=== PATIENT | male | born 1940 | race Caucasian/White ===

== ENCOUNTER → 2016-08-29 | Outpatient (REF) | payer BC, MEDICARE ==
[~2016-08-29] MED LIST: AMLO10TA2 PO; ATOR40TA75 PO; CHLO50TA PO; CIPR-249 PO; CITA20TA4 PO; ESOM1CAP5 PO; FINA5TAB2 PO; FLOM5CAP PO; FURO40TA2 PO; GEMF600T PO; GLIM4TAB PO; ISOS120T4 PO; LEVO500T3 PO; LISI-538 PO; LISI40TAB PO; LOVA1CAP17 PO; MAGN1TAB25 PO; METO-398 PO; METO100T5 PO; NEXI40CA PO; OMEG100011 PO; OMEP40CA2 PO; OXYB15TA PO; PEG1POW PO; POTA10CA PO; POTA1TAB14 PO; PROAAER10 INH; TRAD5TAB PO; XANA0.25 PO
[2016-08-29 16:18] LABS: ALBUMIN 3.2 GM/DL (3.2-5.2); ALBUMIN/GLOBULIN RATIO 0.84 (1.00-1.93); ALKALINE PHOSPHATASE 192 U/L (45-117); ALT/SGPT 59 U/L (12-78); ANION GAP 8 MEQ/L (8-16); AST/SGOT 25 U/L (15-37); BILIRUBIN,TOTAL 0.8 MG/DL (0.2-1.0); BLOOD UREA NITROGEN 13 MG/DL (7-18); CALCIUM LEVEL 8.7 MG/DL (8.8-10.2); CARBON DIOXIDE LEVEL 31 MEQ/L (21-32); CHLORIDE LEVEL 95 MEQ/L (98-107); CHOLESTEROL LEVEL 179 MG/DL (<200); GLOMERULAR FILTRATION RATE > 60.0 (>42); GLUCOSE, FASTING 130 MG/DL (83-110); MAGNESIUM LEVEL 1.9 MG/DL (1.8-2.4); POTASSIUM SERUM 4.7 MEQ/L (3.5-5.1); SODIUM LEVEL 134 MEQ/L (136-145); TRIGLYCERIDES LEVEL 296 MG/DL (<150)
== END ==
LOC: M SFHCLACO 08:41
PROVIDERS: ATTEND Physician Assistant
DX: E11.9 Type 2 diabetes mellitus without complications (principal); I10 Essential (primary) hypertension; E78.2 Mixed hyperlipidemia; E61.2 Magnesium deficiency; Z12.5 Encounter for screening for malignant neoplasm of prostate
CPT/HCPCS: 80053; 80061; 83036; 83735; G0103

== ENCOUNTER → 2016-12-13 | Outpatient (CLI) | payer MEDICARE, BC ==
--- NOTE | 2016-12-17 11:32 | SLEEPCENT ---
DATE OF PROCEDURE: 12/13/2016 REFERRING PHYSICIAN: Dr. Kyler Iyer. INTERPRETATION: Nocturnal polysomnography was performed for titration of pressure therapy in this patient with severe organic brain syndrome, apnea/hypopnea index 116. For testing, a ICU Metrix Simplus full face mask of small size was used, 3 liters of oxygen was bled through the system per order and the lights extinguished. 7 hours and 30 minutes of data were reviewed. There were 327 minutes of sleep identified. Sleep latency was short at 24 minutes. Rapid eye movement (REM) latency was short at 7 minutes. Sleep architecture improved with evidence of REM rebound. Overall sleep efficiency was 75.1%. The patient's EKG showed a sinus rhythm with PACs. Average heart rate 67 beats per minute. EEG shows reasonably normal waveforms for awake and sleep. Respiratory events persisted requiring an increase in CPAP despite optimal mask fit and minimal air leak. The patient was changed to a bilevel device. The best sleep was seen on an inspiratory pressure of 22 over an expiratory pressure of 18. This with 3 liters of oxygen bled through the system with some limb activity identified and with EMG leads, but arousal from limb events occurred 4.6 times per hour. IMPRESSION: Obstructive sleep apnea syndrome (G47.33). RECOMMENDATION: Nightly use of pressure therapy inspiratory pressure of 22 and a respiratory pressure of 18 with 3 liters of oxygen bleed through the system.
== END ==
LOC: M SLEEP 07:59
PROVIDERS: ATTEND Internal Medicine Pulmonary Disease
DX: G47.33 Obstructive sleep apnea (adult) (pediatric) (principal)

== ENCOUNTER → 2017-07-31 | Outpatient (REF) | payer BC, MEDICARE ==
[2017-07-31 15:08] LABS: ALBUMIN 3.1 GM/DL (3.2-5.2); ALBUMIN/GLOBULIN RATIO 0.74 (1.00-1.93); ALKALINE PHOSPHATASE 369 U/L (45-117); ALT/SGPT 76 U/L (12-78); ANION GAP 6 MEQ/L (8-16); AST/SGOT 49 U/L (7-37); BLOOD UREA NITROGEN 14 MG/DL (7-18); CALCIUM LEVEL 8.4 MG/DL (8.8-10.2); CARBON DIOXIDE LEVEL 36 MEQ/L (21-32); CHLORIDE LEVEL 96 MEQ/L (98-107); CHOLESTEROL LEVEL 178 MG/DL (<200); CHOLESTEROL RISK RATIO 6.846 (<5); CREATININE FOR GFR 1.19 MG/DL (0.70-1.30); GLOMERULAR FILTRATION RATE > 60.0 (>42); GLUCOSE, FASTING 144 MG/DL (70-100); HDL CHOLESTEROL 26 MG/DL (>40); LDL CHOLESTEROL 92.6 MG/DL (<100); MAGNESIUM LEVEL 2.1 MG/DL (1.8-2.4); NON-HDL-C 152 MG/DL; POTASSIUM SERUM 4.6 MEQ/L (3.5-5.1); SODIUM LEVEL 138 MEQ/L (136-145); TOTAL PROTEIN 7.3 GM/DL (6.4-8.2); TRIGLYCERIDES LEVEL 297 MG/DL (<150)
[2017-07-31 15:17] LABS: ESTIMATED AVERAGE GLUCOSE 140 MG/DL (60-110); HEMOGLOBIN A1c 6.5 %
== END ==
LOC: M SFHCLACO 08:17
DX: E78.2 Mixed hyperlipidemia (principal); I10 Essential (primary) hypertension; E11.9 Type 2 diabetes mellitus without complications; E61.2 Magnesium deficiency

== ENCOUNTER 2019-11-17 10:05 | Inpatient (IN) | payer BC, MEDICARE ==
[~2019-11-17] VITALS: Ht 170.2 cm; Wt 118.2 kg
[~2019-11-17 10:05] MED LIST changes: -AMLO10TA2 PO; +AMLO1TAB25 PO; -CITA20TA4 PO; +CITA20TA6 PO; +FLOM0.4C39 PO; -FLOM5CAP PO; -GEMF600T PO; +GEMF600T5 PO; -GLIM4TAB PO; +GLIM4TAB5 PO; -ISOS120T4 PO; +ISOS120T7 PO; +KLOR10TA76 PO; +LISI40TA PO; -LISI40TAB PO; -MAGN1TAB25 PO; +MAGN1TAB26 PO; -METO-398 PO; +METO200T28 PO; -OMEP40CA2 PO; +OMEP40CA97 PO; -OXYB15TA PO; +OXYB15TA14 PO; -POTA10CA PO
[2019-11-17] MEDS ORDERED: methylPREDNISolone 125MG 2ML VIAL IV ONE (10:45)
[2019-11-17] MEDS ORDERED: IPRATROPIUM 0.5MG/ALBUTEROL 2.5MG INH SOL UD 3ML (DUONEB) NEB ONE (10:45)
[2019-11-17 11:03] LABS: BASO % 0.1 % (0.0-1.0); EOS % 0.1 % (0.0-3.0); HEMATOCRIT 41.2 % (42.0-52.0); HEMOGLOBIN 11.7 g/dl (13.5-17.5); LYMPH # 0.7 10^3/uL (1.5-5.0); LYMPH % 7.9 % (24.0-44.0); MEAN CORPUSCULAR HEMOGLOBIN 27.2 pg (27.0-33.0); MEAN CORPUSCULAR HGB CONC 28.4 g/dl (32.0-36.5); MEAN CORPUSCULAR VOLUME 95.8 fl (80.0-96.0); MONO # 0.5 10^3/uL (0.0-0.8); MONO % 5.3 % (0.0-5.0); NEUTROPHILS # 7.7 10^3/uL (1.5-8.5); PLATELET COUNT, AUTOMATED 253 10^3/uL (150-450); WHITE BLOOD COUNT 8.9 10^3/uL (4.0-10.0)
--- NOTE | 2019-11-17 11:17 | REPVR ---
PROCEDURE INFORMATION: Exam: XR Chest, 1 View Exam date and time: 11/17/2019 10:47 AM Age: 79 years old Clinical indication: Dyspnea and shortness of breath; Additional info: Dyspnea/cough TECHNIQUE: Imaging protocol: XR of the chest Views: 1 view. COMPARISON: CR PORTABLE CHEST X-RAY 12/09/2016 8:53 AM FINDINGS: Lungs: There is mild to moderate pulmonary edema. Pleural space: Unremarkable. No pleural effusion. No pneumothorax. Heart/Mediastinum: The heart is enlarged. Bones/joints: Unremarkable. IMPRESSION: CHF. Electronically signed by: Pedro Garcia On 11/17/2019 11:17:08 AM
[2019-11-17 11:49] LABS: ALBUMIN 3.2 GM/DL (3.2-5.2); ALT/SGPT 9 U/L (12-78); BILIRUBIN,DIRECT 0.5 MG/DL (0.0-0.2); BILIRUBIN,TOTAL 0.8 MG/DL (0.2-1.0); BLOOD UREA NITROGEN 19 MG/DL (7-18); CARBON DIOXIDE LEVEL 38 MEQ/L (21-32); CHLORIDE LEVEL 96 MEQ/L (98-107); CPK CREATINE PHOSPHOKINASE 24 U/L (39-308); GLOMERULAR FILTRATION RATE > 60.0 (>35); GLUCOSE, FASTING 35 MG/DL (70-100); MB/CK RELATIVE INDEX 8.33 (< OR =4); NT-PRO BNP 1909 PG/ML (<450); POTASSIUM SERUM 5.1 MEQ/L (3.5-5.1); SODIUM LEVEL 138 MEQ/L (136-145); THYROXINE (T4) 8.9 UG/DL (4.5-12.0); TOTAL PROTEIN 7.9 GM/DL (6.4-8.2); TROPONIN I < 0.02 NG/ML (< 0.10)
[2019-11-17] MEDS ORDERED: FUROSEMIDE 100MG/10ML VIAL (J1940) IV ONE (12:00)
[2019-11-17] MEDS ORDERED: FURO40TA2 PO (13:30)
[2019-11-17] MEDS ORDERED: POLY1POW38 PO (13:30)
[2019-11-17] MEDS ORDERED: POTA20TA6 PO (13:30)
[2019-11-17] MEDS ORDERED: ACETAMINOPHEN TAB 650MG DOSE (2X325MG) PO PRN (15:30)
--- NOTE | 2019-11-17 16:53 | ECGEPIP ---
[facility] - ED Test Date: 2019-11-17 Pat Name: MIRANDA MONTOYA Department: Room: - Gender: Male [employer] Manager: JEANCARLOS : 1940 Requested By: Genevieve Espinal Order Number: [id number] Reading MD: Genevieve Espinal Measurements Intervals [place] Rate: 52 P: 11 OR: 182 QRS: 48 QRSD: 100 T: 45 QT: 495 QTc: 465 Interpretive Statements SINUS BRADYCARDIA WITH SINUS ARRHYTHMIA PROLONGED QT INTERVAL DECREASED RATE 12/07/16 Electronically Signed on 11-17-2019 16:52:47 EDT by Genevieve Espinal
[2019-11-17 17:04] VITALS: BP 143/70
[2019-11-17] MEDS ORDERED: GLUCAGON INJ 1MG VIAL SC PRN (17:15)
[2019-11-17] MEDS ORDERED: GLUCOSE 4GM CHEW TABLET PO PRN (17:15)
[2019-11-17] MEDS ORDERED: DEXTROSE 50% 50 ML SYRINGE IV PRN (17:15)
[2019-11-17] MEDS: FUROSEMIDE 40MG/4ML VIAL (J1940) IV SCH (18:12)
[2019-11-17] MEDS: HumaLOG INSULIN (NovoLOG) PER UNIT SC SCH ×2 (18:13→21:34)
--- NOTE | 2019-11-17 18:17 | HPEPDOC ---
[facility] Medical History & Physical Date of Admission Nov 17, 2019 Date of Service: Nov 17, 2019 Primary Care Physician: Katlyn Covarrubias PA-C, LAC Attending Physician: SCOTT NICOLAS MD History and Physical HPI: Mr. Song is an 79yo male with history of dCHF (EF65%, 2017), FRAN non compliant with CPAP, COPD? who presented to the ED complaining of SOB that has been worsening over the past 2 weeks. His reported citrix consultant were called to his house twice over the weekend for the patient's confusion and his normal home dose of 4L O2 was increased to 5L with saturation found to be 86% at home. He states that his shortness of breath gets worse with exertion and somewhat improved with nebulizer treatments given by the ED. He states that he needs to sleep in his recliner at night as he cannot lay flat. He also reports having "panic attacks" in the middle of the night that wake him up and take his breath away. He reports a productive cough with white sputum but denies fever, chills, or night sweats. He denies chest pain, palpitations, and abdominal pain. PMH: 1. Right-sided heart failure (last Echo 2016) 2. diastolic CHF (EF65%) 3. Pulmonary HTN (RVSP 45mmHg) 4. HTN 5. HLD 2b 6. Non-insulin dependent Type 2 diabetes 7. FRAN without CPAP 8. Depression 9. 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 TURBT 2014 2. Cataract surgery Meds: please see below. 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 HEENT: no vision changes or lightheadedness. CARDIOVASCULAR: no chest pain or palpitations. RESPIRATORY: no wheezing. GI: no nausea, vomiting, constipation, or diarrhea. : no hematuria or dysuria. SKIN: no rashes or lesions. MSK: no weakness or joint pain. Neuro: No Weakness, No Numbness, No Paresthesias, No Loss of Consciousness, No Syncope, No Dizziness, No Headache, No Coordination Changes, Reports recent falls Psych: No Anxiety/Panic, No Depression, No Insomnia, No Personality Changes, No Delusions Physical Exam: VITAL SIGNS: please see below. GENERAL: Pt lying comfortably on hospital bed, appears stated age, in NAD. HEENT: NC, AT, no scleral icterus, no pharyngeal erythema, PERRL, EOMI NECK: difficult to determine JVD or lymphadenopathy due to size of neck. CV: RRR with 2/6 systolic ejection murmur at right upper sternal border, no rubs or gallops. RESPIRATORY: Decreased breath sounds in all wu bilaterally, decreased ta ctile fremitus from lower lobes up to middle lobes, increased e to a egophony in bases B/L. Expiration>inspiration. No other adventitious breath sounds appreciated ABDOMEN: obese, ND, tender to deep palpation in RUQ, bowel sounds present in all 4 quadrants, no masses or organomegaly appreciated EXTREMITIES: trace edema in ankles B/L, pedal pulses +2 and equal B/L. PSCYH: normal mood and affect. LABORATORY, MICROBIOLOGY: please see below. IMAGING: CXR COMPARISON: CR PORTABLE CHEST X-RAY 12/09/2016 8:53 AM FINDINGS: Lungs: There is mild to moderate pulmonary edema. Pleural space: Unremarkable. No pleural effusion. No pneumothorax. Heart/Mediastinum: The heart is enlarged. Bones/joints: Unremarkable. IMPRESSION: CHF. ASSESSMENT/PLAN: Mr. Song is an 79yo male with a PMH of dCHF (EF65%), FRAN noncompliant with CPAP, COPD who presented to the ED with worsening SOB for the past 2 weeks, was found to have elevated lactic acid of 3.7, increased BNP and CXR with cephalization concerning for acute decompensation of congestive heart failure. # SOB 2/2 acute decompensation of CHF vs pulmonary hypertension - s/p one dose of Lasix 80mg, albuterol/ipratropium 3mL NEB, and methylpre dnisolone 125mg in ED - Hold Lisinopril and KCl supplement due to hyperkalemia - Will diurese with Lasix 40mg IV BID - 2g Na diet restriction daily - 1.5L fluid restriction daily - Daily weights, strict I/O - BNP found to be elevated at 1909 - Lactic acid came down to 1.4 - Oxygen titration orders Keep 88-92% - Continue Isosorbide Mononitrate - Suspect patient noncompliant with fluid restriction at home. Will need teaching prior to discharge # History of COPD: patient reports cough productive of clear sputum - Sputum culture ordered - WBC WNL # HTN - Metoprolol succinate decreased to 25mg BID because of bradycardia on admission and acute decompensation of CHF - Continue Amlodipine # Type 2 Diabetes, non-insulin dependent - Holding home medications - SSI with hypoglycemic protocol # HLD - Continue Lipitor # FRAN noncompliant with CPAP at home: on O2 in hospital - Will likely need sleep study/titration in outpatient setting # GERD - Continue Omeprazole # Depression - Continue Celexa DVT prophylaxis: Lovenox Vital Signs Vital Signs Date Time Temp Pulse Resp B/P (MAP) Pulse Ox O2 Delivery O2 Flow Rate FiO2 11/17/19 17:12 97.6 69 24 144/66 (92) 89 Nasal Cannula 4.0 Laboratory Data Labs 24H Laboratory Tests 2 11/17/19 10:42: Immature Granulocyte % (Auto) 0.6, Neutrophils (%) (Auto) 86.0H, Lymphocytes (%) (Auto) 7.9L, Monocytes (%) (Auto) 5.3H, Eosinophils (%) (Auto) 0.1, Basophils (%) (Auto) 0.1, Neutrophils # (Auto) 7.7, Lymphocytes # (Auto) 0.7L, Monocytes # (Auto) 0.5, Eosinophils # (Auto) 0.0, Basophils # (Auto) 0.0, Nucleated Red Blood Cells % (auto) 0.0, Anion Gap 4L, Glomerular Filtration Rate > 60.0, Lactic Acid Level 3.7*H, Calcium Level 9.0, Total Bilirubin 0.8, Direct Bilirubin 0.5H, Aspartate Amino Transf (AST/SGOT) 14, Alanine Aminotransferase (ALT/SGPT) 9L, Alkaline Phosphatase 122H, Total Creatine Kinase 24L, Creatine Kinase MB 2.0, Creatine Kinase MB Relative Index 8.33H, Troponin I < 0.02, UK-Ydy-A-Type Natriuretic Peptide 1909H, Total Protein 7.9, Albumin 3.2, Albumin/Globulin Ratio 0.7, Thyroid Stimulating Hormone (TSH) 1.260, Thyroxine (T4) 8.9 11/17/19 15:54: Lactic Acid Followup at 4 Hours 1.4 CBC/BMP Laboratory Tests 11/17/19 10:42 Microbiology Microbiology 11/17/19 Blood Culture, Received Pending 11/17/19 Blood Culture, Received Pending Home Medications Scheduled Amlodipine Besylate (Amlodipine Besylate) 10 Mg Tab, 10 MG PO DAILY Atorvastatin Calcium (Atorvastatin Calcium) 40 Mg Tab, 40 MG PO QHS Citalopram Hydrobromide (Citalopram HBr) 20 Mg Tab, 20 MG PO QHS Furosemide (Furosemide) 40 Mg Tablet, 40 MG PO BID Gemfibrozil (Gemfibrozil) 600 Mg Tab, 600 MG PO BID Glimepiride (Glimepiride) 4 Mg Tab, 4 MG PO DAILY Isosorbide Mononitrate (Isosorbide Mononitrate ER) 120 Mg Tab, 120 MG PO DAILY Linagliptin (Tradjenta) 5 Mg Tab, 5 MG PO QHS Lisinopril (Lisinopril) 40 Mg Tab, 40 MG PO QHS Magnesium Oxide (Magnesium Oxide) 400 Mg Tab, 800 MG PO TID Metoprolol Succinate (Metoprolol Succinate) 50 Mg Tab.er.24h, 50 MG PO BID Candor-3 Acid Ethyl Esters (Lovaza) 1 Cap Cap, 1 CAP PO BID Omeprazole (Omeprazole) 40 Mg Cap, 40 MG PO QHS Oxybutynin Chloride (Oxybutynin Chloride ER) 15 Mg Tab, 15 MG PO QHS Potassium Chloride (Potassium Chloride) 20 Meq Tab.er.prt, 20 MEQ PO BID Scheduled PRN Albuterol Sulfate (Proair Hfa) 108 Mcg/Act Aer, 2 PUFF INH Q4H PRN for SHORTNESS OF BREATH Alprazolam (Xanax) 0.25 Mg Tab, 0.25 MG PO TID PRN for ANXIETY Polyethylene Glycol 3350 (Polyethylene Glycol 3350) 17 Gm Powd.pack, 17 GRAM PO DAILY PRN for CONSTIPATION Allergies Coded Allergies: No Known Allergies (Unverified , 10/13/14) A-FIB/CHADSVASC A-FIB History Current/History of A-Fib/PAF?: No GME ATTESTATION GME ATTESTATION My faculty preceptor for this patient encounter was physically present during the encounter and was fully available. All aspects of the patient interview, examination, medical decision making process, and medical care plan development were reviewed and approved by the faculty preceptor. The faculty preceptor is aware and concurs with the plan as stated in the body of this note and will attest to such by his/her cosignature. ATTENDING NOTE Patient was seen and examined by me personally with the residents and the students. Agree with the above assessment and plan. ALICIA BROWN MD Nov 17, 2019 17:43 SCOTT NICOLAS MD Nov 21, 2019 14:03
[2019-11-17] MEDS ORDERED: diphenhydrAMINE 25MG CAP PO ONE (20:15)
[2019-11-17] MEDS: ENOXAPARIN 40MG/0.4ML SYRINGE (J1650 PER 10MG) SC SCH (21:35)
[2019-11-17] MEDS: ATORVASTATIN 20 MG TAB PO SCH (21:35)
[2019-11-17] MEDS: OMEPRAZOLE 20 MG CAP PO SCH (21:37)
[2019-11-17] MEDS: CitaloPRAM (CeleXA) 20 MG TAB PO SCH (21:37)
[2019-11-17] MEDS: DOCUSATE SODIUM 100 MG CAP PO SCH (21:37)
[2019-11-17] MEDS: METOPROLOL SUCC (TopROL XL) 50MG **XL** TAB PO SCH (21:42)
[2019-11-17] MEDS: NYSTATIN 100,000 UNITS/GM TOPICAL PWD 15 GM TOP SCH (21:44)
[2019-11-17] MEDS: oxyBUTYnin *DITROPAN XL* 5 MG TABCR PO SCH (21:45)
[2019-11-17] MEDS: gemfibroziL 600 MG TAB PO SCH (21:46)
[2019-11-17 22:00] VITALS: BP 168/65
[2019-11-18] VITALS (9 sets, daily range): BP systolic 119–142; BP diastolic 64–85; O2SAT 90–97
[2019-11-18 05:56] LABS: HEMATOCRIT 36.6 % (42.0-52.0); HEMOGLOBIN 11.1 g/dl (13.5-17.5); MEAN CORPUSCULAR HEMOGLOBIN 28.2 pg (27.0-33.0); MEAN CORPUSCULAR HGB CONC 30.3 g/dl (32.0-36.5); MEAN CORPUSCULAR VOLUME 93.1 fl (80.0-96.0); PLATELET COUNT, AUTOMATED 234 10^3/uL (150-450); RED BLOOD COUNT 3.93 10^6/uL (4.30-6.10); WHITE BLOOD COUNT 6.3 10^3/uL (4.0-10.0)
[2019-11-18 06:26] LABS: ALBUMIN 3.1 GM/DL (3.2-5.2); BILIRUBIN,TOTAL 0.9 MG/DL (0.2-1.0); CALCIUM LEVEL 8.6 MG/DL (8.8-10.2); CREATININE FOR GFR 1.28 MG/DL (0.70-1.30); GLOMERULAR FILTRATION RATE 57.6 (>35); MAGNESIUM LEVEL 2.3 MG/DL (1.8-2.4); TOTAL PROTEIN 7.4 GM/DL (6.4-8.2)
[2019-11-18] MEDS: HumaLOG INSULIN (NovoLOG) PER UNIT SC SCH ×4 (09:19→21:00)
[2019-11-18] MEDS: DOCUSATE SODIUM 100 MG CAP PO SCH ×2 (09:20→21:18)
[2019-11-18] MEDS: gemfibroziL 600 MG TAB PO SCH ×2 (09:20→21:19)
[2019-11-18] MEDS: amLODIPine 10 MG TAB PO SCH (09:22)
[2019-11-18] MEDS: ISOSORBIDE MON. (IMDUR) 60 MG XR TAB PO SCH (09:22)
[2019-11-18] MEDS: METOPROLOL SUCC (TopROL XL) 50MG **XL** TAB PO SCH ×2 (09:22→21:26)
[2019-11-18] MEDS: FUROSEMIDE 40MG/4ML VIAL (J1940) IV SCH ×2 (09:23→17:20)
[2019-11-18] MEDS: NYSTATIN 100,000 UNITS/GM TOPICAL PWD 15 GM TOP SCH ×2 (09:23→21:15)
--- NOTE | 2019-11-18 13:52 | IPNPDOC ---
Date Seen The patient was seen on 11/18/19. Progress Note HPI: Mr. Song is an 79yo male with a PMH of dCHF (EF65%, 2017), FRAN noncompliant with CPAP, and COPD who presented to the ED on 11/17/19 complaining of SOB that had been worsening over the past 2 weeks. SUBJECTIVE: Pt reported being restless overnight with a few "panic attack" episodes where he woke up because he couldnt catch his breath. Pts nurse reported that his saturation was below 88% overnight so his O2 was increased to 6L, but in the morning his saturation increased to 96% so his O2 was decreased to 4L. Pt reported that he drinks too much fluids at home and it consists main ly of mountain dew. Pt denied chest pain, nausea, vomiting, diarrhea, dysuria, or hematuria. OBJECTIVE: GENERAL: Pt lying comfortably on hospital bed, appears stated ago, in NAD. HEENT: NC, AT, no scleral icterus, no pharyngeal erythema. NECK: no JVD or lymphadenopathy appreciated, but difficult due to size of neck. CV: RRR with 2/6 systolic ejection murmur at right upper sternal border, no rubs or gallops. RESPIRATORY: Decreased breath sounds in all wu B/L, decreased tactile fremitus in lower lobes B/L, and no e to a egophony in bases B/L. Expiration>inspiration. ABDOMEN: obese, ND, nontender to palpation, bowel sounds present in all 4 quadrants, no mass or organomegaly appreciated. SKIN: erythematous, dry, scaly, non-pruritic rash in intertriginous region. EXTREMITIES: trace edema in ankles B/L, pedal pulses +2 and equal B/L. PSCYH: normal mood and affect. LABORATORY, MICROBIOLOGY, and IMAGING: please see below. ASSESSMENT/PLAN: Mr. Song is an 79yo male with a PMH of dCHF (EF65%, 2017), FRAN noncompliant with CPAP, and COPD who presented to the ED with worsening SOB for the past 2 weeks, was found to have lactic acid of 3.7, increased BNP, and CXR with cephalization concerning for acute decompensation of CHF. # SOB 2/2 acute decompensation of CHF vs pulmonary hypertension - ~1.2L net fluid loss over past 24 hours, goal is ~3L negative/24 hours - Will continue to diuresis with Lasix 40mg BID - 2g Na diet restriction daily - 1.5L fluid restriction daily - Daily weights, strict I/O - Oxygen titration orders keep at 88-92% - ECHO ordered and pending - Continue to hold Lisinopril and KCl supplement due to hyperkalemia - Continue Isosorbide Mononitrate - Suspect that patient is noncompliant with fluid at home and will need education prior to discharge # HTN - Continue Metoprolol succinate 25mg BID - Continue Amlodipine # Type 2 Diabetes - Holding home medications - SSI with hypoglycemic protocol # HLD - Continue Lipitor # FRAN noncompliant with CPAP at home: on O2 in hospital - Will likely need sleep study/titration in outpatient setting # GERD - Continue Omeprazole # Depression/Anxiety - Continue Celexa, Xanax DVT prophylaxis: Lovenox VS, I&O, 24H, Fishbone Vital Signs/I&O Vital Signs Date Time Temp Pulse Resp B/P (MAP) Pulse Ox O2 Delivery O2 Flow Rate FiO2 11/18/19 11:10 90 Nasal Cannula 4.0 11/18/19 10:00 98.4 78 20 119/67 (84) 11/18/19 06:00 92 I&O- Last 24 Hours up to 6 AM 11/18/19 06:00 Intake Total 620 ml Output Total 1300 ml Balance -680 ml Laboratory Data 24H LABS Laboratory Tests 2 11/17/19 15:54: Lactic Acid Followup at 4 Hours 1.4 11/17/19 17:56: Bedside Glucose (Misc Panel) 139H 11/17/19 21:29: Bedside Glucose (Misc Panel) 334H 11/18/19 05:14: Nucleated Red Blood Cells % (auto) 0.0, Anion Gap 3L, Glomerular Filtration Rate 57.6, Calcium Level 8.6L, Magnesium Level 2.3, Total Bilirubin 0.9, Aspartate Amino Transf (AST/SGOT) 13, Alanine Aminotransferase (ALT/SGPT) 7L, Alkaline Ph osphatase 112, Total Protein 7.4, Albumin 3.1L, Albumin/Globulin Ratio 0.7 11/18/19 12:06: Bedside Glucose (Misc Panel) 126H CBC/BMP Laboratory Tests 11/18/19 05:14 Microbiology Microbiology 11/17/19 Blood Culture - Preliminary, Resulted No growth after 24 hours . All specim... 11/17/19 Blood Culture - Preliminary, Resulted No growth after 24 hours . All specim... GME ATTESTATION GME ATTESTATION My faculty preceptor for this patient encounter was physically present during the encounter and was fully available. All aspects of the patient interview, examination, medical decision making process, and medical care plan development were reviewed and approved by the faculty preceptor. The faculty preceptor is aware and concurs with the plan as stated in the body of this note and will attest to such by his/her cosignature. ATTENDING NOTE Patient was seen and examined by me personally with the residents and the students. Agree with the above assessment and plan. ALICIA BROWN MD Nov 18, 2019 13:52 SCOTT NICOLAS MD Nov 21, 2019 14:06
[2019-11-18] MEDS ORDERED: ALPRAZolam 0.25 MG TAB PO PRN (14:00)
--- NOTE | 2019-11-18 14:44 | ECHO ---
DATE OF PROCEDURE: 11/18/2019 Age: 79 Gender: Male Height: 170 cm Weight: 118 kg REFERRING PHYSICIAN: Sonja Love MD INDICATION: Heart failure, unspecified. MEASUREMENTS: 2D Measurements: Aortic root 3.8 cm Proximal ascending aorta 3.6 cm Left atrium 5.3 cm Intraventricular septum 1.43 cm Posterior wall 1.41 cm Left ventricle diastole 5.2 cm Inferior vena cava 2.2 cm with more than 50% respiratory variation Doppler Measurements: No aortic stenosis No aortic regurgitation Aortic valve velocity 171 cm/s LVOT velocity 82.5 cm/s No mitral stenosis No mitral regurgitation Mitral E velocity 104 cm/s Mitral A velocity 83.9 cm/s Mitral deceleration time 197 m/sec No tricuspid regurgitation No pulmonic regurgitation Pulmonary acceleration time 72 m/sec MITRAL ANNULAR TISSUE DOPPLER E prime septal 5.9 cm/s, E prime lateral 6.0 cm/s DESCRIPTION: Rhythm was sinus. This was a moderately technically difficult echocardiogram performed with the patient supine. This was a 2D, M-mode, color flow Doppler, and pulsed wave Doppler examination including mitral annular tissue Doppler. CONCLUSIONS: 1. Mild concentric left ventricular hypertrophy. Normal regional left ventricular (LV) wall motion and wall thickening. Normal left ventricular (LV) systolic function. Left ventricular ejection fraction (LVEF) 50% by visual estimate. Grade 2 left ventricular (LV) diastolic dysfunction (pseudonormal left ventricular (LV) diastolic filling pattern). 2. Severe left atrial dilatation. 3. Abbreviated pulmonary acceleration time suggestive of at least moderate elevation of pulmonary artery systolic pressure. 4. Moderate mitral annular calcification. No mitral stenosis or regurgitation. 5. Moderate mitral annular calcification. No mitral stenosis or regurgitation. 6. Mild dilatation of the aortic root at the level of the sinus of Valsalva. 7. Trace amount of pericardial effusion. 8. Moderately technically difficult echocardiogram. [facility]
[2019-11-18] MEDS: ENOXAPARIN 40MG/0.4ML SYRINGE (J1650 PER 10MG) SC SCH (21:16)
[2019-11-18] MEDS: OMEPRAZOLE 20 MG CAP PO SCH (21:17)
[2019-11-18] MEDS: oxyBUTYnin *DITROPAN XL* 5 MG TABCR PO SCH (21:18)
[2019-11-18] MEDS: ATORVASTATIN 20 MG TAB PO SCH (21:18)
[2019-11-18] MEDS: CitaloPRAM (CeleXA) 20 MG TAB PO SCH (21:19)
[2019-11-19 02:00] VITALS: BP 130/77
[2019-11-19 06:00] VITALS: BP 137/80
[2019-11-19 06:49] LABS: HEMATOCRIT 37.1 % (42.0-52.0); MEAN CORPUSCULAR HEMOGLOBIN 27.1 pg (27.0-33.0); MEAN CORPUSCULAR HGB CONC 29.6 g/dl (32.0-36.5); MEAN CORPUSCULAR VOLUME 91.4 fl (80.0-96.0); PLATELET COUNT, AUTOMATED 251 10^3/uL (150-450); RED BLOOD COUNT 4.06 10^6/uL (4.30-6.10); WHITE BLOOD COUNT 6.9 10^3/uL (4.0-10.0)
[2019-11-19 07:15] LABS: ALBUMIN 3.1 GM/DL (3.2-5.2); BILIRUBIN,TOTAL 0.7 MG/DL (0.2-1.0); CALCIUM LEVEL 8.4 MG/DL (8.8-10.2); CREATININE FOR GFR 1.28 MG/DL (0.70-1.30); GLOMERULAR FILTRATION RATE 57.6 (>35); MAGNESIUM LEVEL 2.2 MG/DL (1.8-2.4); PHOSPHORUS LEVEL 4.1 MG/DL (2.5-4.9)
[2019-11-19] MEDS: HumaLOG INSULIN (NovoLOG) PER UNIT SC SCH ×3 (07:30→17:30)
[2019-11-19] MEDS: DOCUSATE SODIUM 100 MG CAP PO SCH (09:43)
[2019-11-19 09:44] VITALS: BP 127/64
[2019-11-19] MEDS: gemfibroziL 600 MG TAB PO SCH (09:44)
[2019-11-19] MEDS: amLODIPine 10 MG TAB PO SCH (09:44)
[2019-11-19] MEDS: FUROSEMIDE 40MG/4ML VIAL (J1940) IV SCH ×2 (09:44→18:13)
[2019-11-19] MEDS: ISOSORBIDE MON. (IMDUR) 60 MG XR TAB PO SCH (09:45)
[2019-11-19] MEDS: METOPROLOL SUCC (TopROL XL) 50MG **XL** TAB PO SCH (09:45)
[2019-11-19] MEDS: NYSTATIN 100,000 UNITS/GM TOPICAL PWD 15 GM TOP SCH (09:46)
[2019-11-19 10:04] VITALS: O2SAT 96
[2019-11-19] MEDS ORDERED: METO1TAB7 PO (11:15)
[2019-11-19] MEDS ORDERED: FURO40TA2 PO (11:15)
[2019-11-19 14:00] VITALS: BP 112/74
--- NOTE | 2019-11-19 18:49 | DS.PDOC ---
Discharge Summary General Date of Admission Nov 17, 2019 at 14:43 Date of Discharge November 19, 2019 Primary Care Physician: Katlyn Covarrubias PA-C, LAC Attending Physician: SCOTT NICOLAS MD Discharge Summary PROCEDURES PERFORMED DURING STAY: None. ADMITTING/DISCHARGING DIAGNOSES: 1. Acute decompensation of CHF 2. HTN 3. Type 2 diabetes: non-insulin dependent 4. HLD 5. FRAN noncompliant with CPAP 6. GERD 7. Depression/Anxiety COMPLICATIONS/CHIEF COMPLAINT: SOB HISTORY OF PRESENT ILLNESS: Mr. Song is an 79yo male with a PMH of dCHF (EF50%, 2019), FRAN noncompliant with CPAP, and COPD who presented to the ED on 11/17/19 complaining of SOB that had been worsening over the past 2 weeks. He reported that the SOB worsened with exertion and that the nebulizer treatments he had received in the ED helped. He admitted to sleeping in a recliner at home and waking up throughout the night from panic attacks where he cannot catch his breath. He denied chest pain, palpitations, nausea, vomiting, or diarrhea. HOSPITAL COURSE/DISCHARGE PLAN: Mr. Song was admitted on 11/17/19 for suspected acute decompensation of CHF vs pulmonary hypertension. CXR was perf ormed in the ED that showed cephalization concerning for acute decompensation of CHF. He was given one dose of Lasix, albuterol/ipratropium, and methylprednisolone in the ED. His home Lisinopril and KCl supplements were held during his stay due to his potassium level of 5.1 upon admission. He continued to receive 40mg of Lasix BID and was put on a 2g Na and 1.5L fluid restriction daily. Pt was educated on continuing this Na and fluid restriction when he goes home. An Echo was ordered and showed that his EF had decreased from 65% in 2017 to 50%. He was also given nystatin topically for a rash in his intertriginous region that has improved. Pt is to be discharged home. DISCHARGE MEDICATIONS: please see below. ALLERGIES: please see below. PHYSICAL EXAMINATION ON DISCHARGE: VITAL SIGNS: please see below. GENERAL: Pt sitting comfortably in bedside chair, appears stated ago, in NAD. HEENT: NC, AT, no scleral icterus, no pharyngeal erythema. NECK: no JVD or lymphadenopathy appreciated, but difficult due to size of neck. CV: RRR with 2/6 systolic ejection murmur at right upper sternal border, no rubs or gallops. RESPIRATORY: Decreased breath sounds in all wu B/L, decreased tactile f remitus in lower lobes B/L, and no e to a egophony in bases B/L. ABDOMEN: obese, ND, NT, bowel sounds present in all 4 quadrants, no masses or organomegaly appreciated. PELVIC: erythematous (improved from 11/17), dry, scaly, non-pruritic rash in intertriginous region. EXTREMITIES: no LE swelling or edema, pedal pulses +2 and equal B/L. PSCYH: normal mood and affect. LABORATORY and MICROBIOLOGY: please see below. IMAGING: PROGNOSIS: Fair. ACITIVITY: As tolerated. DIET: As tolerated. DISPOSITION: Discharge home. DISCHARGE INSTRUCTIONS/ITEMS TO FOLLOWUP ON OUTPATIENT: 1. Follow up with PCP within 7 days. 2. Continue with 2g Na and 1.5L fluid restriction daily. DISCHARGE CONDITION: Stable. TIME SPENT ON DISCHARGE: Greater than 35 minutes. Flako Gonsales PAS-II Vital Signs/I&Os Vital Signs Date Time Temp Pulse Resp B/P (MAP) Pulse Ox O2 Delivery O2 Flow Rate FiO2 11/19/19 14:00 98.2 75 20 112/74 (87) 88 Nasal Cannula 11/19/19 10:04 4.0 11/18/19 06:00 92 I&O- Last 24 Hours up to 6 AM 11/19/19 06:00 Intake Total 620 ml Output Total 2200 ml Balance -1580 ml Laboratory Data Labs 24H Laboratory Tests 2 11/18/19 20:04: Bedside Glucose (Misc Panel) 117H 11/19/19 05:59: Anion Gap 6L, Glomerular Filtration Rate 57.6, Calcium Level 8.4L, Phosphorus Level 4.1, Magnesium Level 2.2, Total Bilirubin 0.7, Aspartate Amino Transf (AST/SGOT) 19, Alanine Aminotransferase (ALT/SGPT) 7L, Alkaline Phosphatase 96, Total Protein 7.0, Albumin 3.1L, Albumin/Globulin Ratio 0.8 11/19/19 06:00: Nucleated Red Blood Cells % (auto) 0.0 11/19/19 11:22: Bedside Glucose (Misc Panel) 149H 11/19/19 16:28: Bedside Glucose (Misc Panel) 143H CBC/BMP Laboratory Tests 11/19/19 05:59 11/19/19 06:00 FSBS Laboratory Tests Test 11/18/19 20:04 11/19/19 11:22 11/19/19 16:28 Range/Units Bedside Glucose (Misc Panel) 117 149 143 83-110 MG/DL Microbiology Microbiology 11/17/19 Blood Culture - Preliminary, Resulted No Growth after 48 hours. All Specime... 11/17/19 Blood Culture - Preliminary, Resulted No Growth after 48 hours. All Specime... Discharge Medications Scheduled Amlodipine Besylate (Amlodipine Besylate) 10 Mg Tab, 10 MG PO DAILY, (Reported) Atorvastatin Calcium (Atorvastatin Calcium) 40 Mg Tab, 40 MG PO QHS, (Reported) Citalopram Hydrobromide (Citalopram HBr) 20 Mg Tab, 20 MG PO QHS, (Reported) Furosemide (Furosemide) 40 Mg Tablet, 40 MG PO BID Gemfibrozil (Gemfibrozil) 600 Mg Tab, 600 MG PO BID, (Reported) Glimepiride (Glimepiride) 4 Mg Tab, 4 MG PO DAILY, (Reported) Isosorbide Mononitrate (Isosorbide Mononitrate ER) 120 Mg Tab, 120 MG PO DAILY, (Reported) Linagliptin (Tradjenta) 5 Mg Tab, 5 MG PO QHS, (Reported) Lisinopril (Lisinopril) 40 Mg Tab, 40 MG PO QHS, (Reported) Magnesium Oxide (Magnesium Oxide) 400 Mg Tab, 800 MG PO TID, (Reported) Metoprolol Succinate (Metoprolol Succinate) 50 Mg Tab.er.24h, 50 MG PO BID [place]-3 Acid Ethyl Esters (Lovaza) 1 Cap Cap, 1 CAP PO BID, (Reported) Omeprazole (Omeprazole) 40 Mg Cap, 40 MG PO QHS, (Reported) Oxybutynin Chloride (Oxybutynin Chloride ER) 15 Mg Tab, 15 MG PO QHS, (Reported) Potassium Chloride (Potassium Chloride) 20 Meq Tab.er.prt, 20 MEQ PO BID, (Reported) Scheduled PRN Albuterol Sulfate (Proair Hfa) 108 Mcg/Act Aer, 2 PUFF INH Q4H PRN for SHORTNESS OF BREATH, (Reported) Alprazolam (Xanax) 0.25 Mg Tab, 0.25 MG PO TID PRN for ANXIETY, (Reported) Polyethylene Glycol 3350 (Polyethylene Glycol 3350) 17 Gm Powd.pack, 17 GRAM PO DAILY PRN for CONSTIPATION, (Reported) Allergies Coded Allergies: No Known Allergies (Unverified , 10/13/14) GME ATTESTATION GME ATTESTATION My faculty preceptor for this patient encounter was physically present during the encounter and was fully available. All aspects of the patient interview, examination, medical decision making process, and medical care plan development were reviewed and approved by the faculty preceptor. The faculty preceptor is aware and concurs with the plan as stated in the body of this note and will attest to such by his/her cosignature. ATTENDING NOTE Patient was seen and examined by me personally with the residents and the students. Agree with the above assessment and plan. ALICIA BROWN MD Nov 19, 2019 18:49 SCOTT NICOLAS MD Nov 21, 2019 14:09
== END 2019-11-19 18:32 | disposition home health service (06) | DRG 194 ==
LOC: M ED 10:05 → EDBD 10:05 → M ED INP 14:43 → ENRESERV 15:52 → M MSPAV 17:22
PROVIDERS: ADMIT Internal Medicine; ATTEND Internal Medicine
DX: I11.0 Hypertensive heart disease with heart failure (principal); J96.11 Chronic respiratory failure with hypoxia; E87.2 Acidosis; I27.20 Pulmonary hypertension, unspecified; J44.9 Chronic obstructive pulmonary disease, unspecified; Z99.81 Dependence on supplemental oxygen; E11.9 Type 2 diabetes mellitus without complications; E78.5 Hyperlipidemia, unspecified; G47.33 Obstructive sleep apnea (adult) (pediatric); F32.9 Major depressive disorder, single episode, unspecified; K21.9 Gastro-esophageal reflux disease without esophagitis; N40.1 Benign prostatic hyperplasia with lower urinary tract symptoms; Z87.891 Personal history of nicotine dependence; Z79.84 Long term (current) use of oral hypoglycemic drugs; Z79.899 Other long term (current) drug therapy; I50.33 Acute on chronic diastolic (congestive) heart failure